=== PATIENT | male | born 1965 | race Caucasian/White ===

== ENCOUNTER → 2017-11-03 | Outpatient (CLI) | payer MEDICARE, MEDICAID ==
[2017-11-03 13:07] LABS: ABSOLUTE BASOPHILS # (AUTO) 0.1 10^3/uL (0.0-0.2); ABSOLUTE EOSINOPHILS # (AUTO) 0.5 10^3/uL (0.0-0.6); ABSOLUTE LYMPHOCYTES (AUTO) 2.9 10^3/uL (0.5-4.7); ABSOLUTE NEUT (AUTO) 8.2 10^3/uL (1.7-8.2); BASOPHILS % (AUTO) 0.5 % (0-2); EOSINOPHILS % (AUTO) 4.2 % (0-6); HEMATOCRIT 43.4 % (37.9-51.0); HEMOGLOBIN 15.2 g/dL (13.5-17.0); LYMPHOCYTES % (AUTO) 22.9 % (13-45); MEAN CORPUSCULAR HEMOGLOBIN 31.6 pg (27.0-33.4); MEAN CORPUSCULAR HGB CONC 34.9 g/dL (32.0-36.0); MEAN CORPUSCULAR VOLUME 91 fl (80-97); MONOCYTES % (AUTO) 7.8 % (3-13); PLATELET COUNT 342 10^3/uL (150-450); RED BLOOD COUNT 4.79 10^6/uL (4.35-5.55); RED CELL DISTRIBUTION WIDTH 12.9 % (11.5-14.0); SEGMENTED NEUTROPHILS % (AUTO) 64.6 % (42-78); TOTAL CELLS COUNTED % (AUTO) 100 %; WHITE BLOOD COUNT 12.7 10^3/uL (4.0-10.5)
[2017-11-04 13:37] LABS: ANTICHROMATIN AB <0.2 AI (0.0-0.9); CENTROMERE B AB <0.2 AI (0.0-0.9); JO-1 ANTIBODY (ANACOMP) <0.2 AI (0.0-0.9); RNP AB 0.3 AI (0.0-0.9); SCLERODERMA-70 ANTIBODIES <0.2 AI (0.0-0.9); SJOGREN'S ANTI-SS-B AB <0.2 AI (0.0-0.9); SJOGREN'S SS-A ANTIBODY <0.2 AI (0.0-0.9); SMITH AB ANA <0.2 AI (0.0-0.9)
[2017-11-06 07:33] LABS: DNA DOUBLE STRAND ANTIBODY ANA 1 IU/mL (0-9)
[2017-11-07 16:39] LABS: CYTOPLASMIC (C-ANCA) <1:20 titer (Neg:<1:20)
[2017-11-08 10:34] LABS: ATYPICAL PANCA <1:20 titer (Neg:<1:20); PERINUCLEAR (P-ANCA) <1:20 titer (Neg:<1:20)
== END ==
LOC: OD 12:03
PROVIDERS: ATTEND Nurse Practitioner
DX: M89.9 Disorder of bone, unspecified (principal); R94.2 Abnormal results of pulmonary function studies; M94.9 Disorder of cartilage, unspecified; R79.89 Other specified abnormal findings of blood chemistry; Z79.899 Other long term (current) drug therapy
CPT/HCPCS: 36415; 82306; 82607; 85025; 86021; 86225; 86235; 86430

== ENCOUNTER 2020-02-19 04:23 | Emergency (ER) | payer MEDICARE ==
[2020-02-19] MEDS ORDERED: NORMAL SALINE 1000 ML 1,000 ML IV ONE ×2 (05:35→07:13)
[2020-02-19] MEDS ORDERED: DEXAMETHASONE SOD PHOS INJ 10 MG/1 ML VIAL IV ONE (05:36)
[2020-02-19] MEDS ORDERED: DIAZEPAM 5 MG TABLET PO ONE (05:36)
--- NOTE | 2020-02-19 05:45 | ER Document Report ---
ED Medical Screen (RME) - General Chief Complaint: Back Pain Stated Complaint: BACK PAIN Primary Care Provider: KENNA SLATER NP [Primary Care Provider] - Follow up as needed Notes: 54-year-old male history of smoking, osteogenesis imperfecta, chronic back pain presents with worsened bilateral low back pain for 4 days. Patient ambulating, denies weakness or numbness, bowel or bladder symptoms, drug use, fever. Also has not been eating for the past 4 days because he is in too much pain to eat. TRAVEL OUTSIDE OF THE [place] IN LAST 30 DAYS: No - Related Data Allergies/Adverse Reactions: No Known Allergies Allergy (Unverified 01/17/14 16:38) Past Medical History - General Information source: Patient, Relative - Social History Chew tobacco use (# tins/day): No Frequency of alcohol use: None Drug Abuse: None - Past Medical History Cardiac Medical History: Reports: Hx Hypercholesterolemia - DX IN 1999, Hx Hypertension - HAS BEEN OK FOR AFEW YEARS Endocrine Medical History: Reports: Hx Diabetes Mellitus Type 1 - DX 8 YEARS AGO, Hx Diabetes Mellitus Type 2 GI Medical History: Reports: Hx Gastroesophageal Reflux Disease - DX 4 YEARS AGO, Hx Hiatal Hernia - DX 4 YEARS AGO Past Surgical History: Denies: Hx Adenoidectomy Review of Systems - Review of Systems Notes: No fever, no weight loss Physical Exam - Vital signs Vitals: Temp Pulse Resp BP Pulse Ox 98.0 F 113 H 17 150/70 H 97 02/19/20 04:34 02/19/20 04:34 02/19/20 04:34 02/19/20 04:34 02/19/20 04:34 - Notes Notes: Awake and alert in no acute distress, diffuse paraspinal and lateral tenderness over lower back with normal inspection, bilateral lower extremity edema Course - Re-evaluation Re-evalutation: 02/19/20 05:44 I have greeted and performed a rapid initial assessment of this patient. A comprehensive ED assessment and evaluation of the patient, analysis of test results and completion of medical decision making process will be conducted by additional ED providers. - Vital Signs Vital signs: Temp Pulse Resp BP Pulse Ox 98.0 F 113 H 17 150/70 H 97 02/19/20 04:34 02/19/20 04:34 02/19/20 04:34 02/19/20 04:34 02/19/20 04:34 Doctor's Discharge - Discharge Referrals: KENNA SLATER NP [Primary Care Provider] - Follow up as needed
--- NOTE | 2020-02-19 06:19 | ER Document Report ---
ED General Pain - General Chief Complaint: Back Pain Stated Complaint: BACK PAIN Time Seen by Provider: 02/19/20 06:06 Primary Care Provider: KENNA SLATER NP [Primary Care Provider] - Follow up as needed Notes: HPI: 54-year-old male presents today stating around 6 weeks of some worsening back pain. Patient states he has a long history of chronic back pain and sees a painter set as well as a back reconstructive surgery in 2000. Patient has a past medical history including osteogenesis imperfecta as well as diabetes. Patient denies any recent falls, incontinence, fevers, vomiting, or dysuria. Patient states that the pain is mostly to the left low back. He denies any midline pain at this time. He denies any foot drop or other review of systems. Patient has had some slight swelling to both legs that he believes is secondary to hanging his legs off the end of the bed for extended periods of time as a position of comfort for his back. He denies any chest pain or shortness of breath. Patient has no history of kidney stones. ROS: See HPI All other review of systems reviewed and otherwise negative Reviewed vital signs and nursing note as charted by RN. PHYSICAL EXAM: CONSTITUTIONAL: Alert and oriented and responds appropriately to questions. Well-appearing; well-nourished HEAD: Normocephalic; atraumatic EYES: PERRL; Conjunctivae clear, sclerae non-icteric ENT: Normal nose; no rhinorrhea; moist mucous membranes; pharynx without lesions noted NECK: Supple without meningismus; non-tender; no cervical lymphadenopathy, no masses CARD: Regular rate and rhythm; no murmurs; symmetric distal pulses RESP: Normal chest excursion without splinting or tachypnea; breath sounds clear and equal bilaterally ABD/GI: Normal bowel sounds; non-distended; soft, non-tender to deep palpation of all 4 quadrants of the abdomen BACK: The back appears normal and is non-tender to palpation along the midline spine. Patient does have some left-sided paraspinal muscular tenderness without swelling or erythema noted. No CVA tenderness EXT: Normal ROM in all joints; non-tender to palpation; 1+ edema to bilateral feet SKIN: No acute lesions noted NEURO: CN 2-12 intact; 5/5 bilateral upper and lower extremity strength with sensation intact to light touch with no apparent foot drop noted with 2+ patellar reflexes PSYCH: The patient's mood and manner are appropriate. Grooming and personal hygiene are appropriate. TRAVEL OUTSIDE OF THE [place] IN LAST 30 DAYS: No - Related Data Allergies/Adverse Reactions: pregabalin [From Lyrica] Adverse Reaction (Severe, Verified 02/19/20 05:57) Hives tizanidine [From Zanaflex] Adverse Reaction (Unknown, Verified 02/19/20 06:20) Past Medical History - General Information source: Patient, Relative - Social History Smoking Status: Never Smoker Chew tobacco use (# tins/day): No Frequency of alcohol use: None Drug Abuse: None Family History: Reviewed & Not Pertinent Patient has homicidal ideation: No - Past Medical History Cardiac Medical History: Reports: Hx Hypercholesterolemia - DX IN 1999, Hx Hypertension - HAS BEEN OK FOR AFEW YEARS Endocrine Medical History: Reports: Hx Diabetes Mellitus Type 1 - DX 8 YEARS AGO, Hx Diabetes Mellitus Type 2 GI Medical History: Reports: Hx Gastroesophageal Reflux Disease - DX 4 YEARS AGO, Hx Hiatal Hernia - DX 4 YEARS AGO Past Surgical History: Reports: Hx Orthopedic Surgery - x4. Denies: Hx Adenoidectomy Physical Exam - Vital signs Vitals: Temp Pulse Resp BP Pulse Ox 98.0 F 113 H 17 150/70 H 97 02/19/20 04:34 02/19/20 04:34 02/19/20 04:34 02/19/20 04:34 02/19/20 04:34 Course - Re-evaluation Re-evalutation: 02/19/20 06:18 Given the above history and physical with the patient's prolonged symptoms, with neurologic exam as above, I do believe discitis, epidural abscess, osteomyelitis, spinal fracture, or spinal cord compression/cauda equina to be extremely unlikely. We will obtain basic labs as well as a magnesium and phosphorus level as the patient has been told that these levels have been low in recent visits. Patient is a pain management patient. Despite being a diabetic, steroids were ordered in triage. Given the slight edema to bilateral lower extremities, will obtain a BNP and an EKG. 02/19/20 07:12 EKG shows a heart rate of 94, normal sinus rhythm, no obvious ST elevation or depression. No change in examination. Labs as recorded. Slightly elevated white blood cell count after Decadron. Phosphorus level is actually elevated as is his calcium. He has had elevated calcium levels in the past. Given his sodium slightly low with an elevated calcium I will provide a liter of fluid. 02/19/20 08:19 No change in exam. Signs are stable. Patient will be discharged home with strict return precautions and follow-up with primary care physician follow-up with his painter set and orthopaedic specialist. HR is now 85 - Vital Signs Vital signs: Temp Pulse Resp BP Pulse Ox 98.0 F 113 H 17 150/70 H 97 02/19/20 04:34 02/19/20 04:34 02/19/20 04:34 02/19/20 04:34 02/19/20 04:34 - Laboratory Results Result Diagrams: 02/19/20 06:10 02/19/20 06:10 Laboratory Results Interpreted: 02/19/20 02/19/20 02/19/20 06:10 06:10 06:10 WBC 17.9 H Lymph % (Auto) 12.0 L Absolute Neuts (auto) 13.7 H Absolute Monos (auto) 1.8 H Sodium 129.1 L Chloride 97 L Glucose 164 H Calcium 10.7 H Phosphorus 5.6 H Creatine Kinase 402 H CK-MB (CK-2) 6.95 H NT-Pro-B Natriuret Pep 02/19/20 06:10 WBC Lymph % (Auto) Absolute Neuts (auto) Absolute Monos (auto) Sodium Chloride Glucose Calcium Phosphorus Creatine Kinase CK-MB (CK-2) NT-Pro-B Natriuret Pep 175 H Critical Laboratory Results Reviewed: No Critical Results - Radiology Results Critical Radiology Results Reviewed: No Critical Results Discharge - Discharge Clinical Impression: Low back pain Qualifiers: Chronicity: chronic Back pain laterality: left Sciatica presence: without sciatica Qualified Code(s): M54.5 - Low back pain; G89.29 - Other chronic pain Condition: Fair Disposition: HOME, SELF-CARE Additional Instructions: Come back immediately for any increased pain, change in location or quality of pain, fevers or vomiting, weakness of your legs, incontinence, or any other acute problems. Please make sure that you follow-up with your primary care physician, painter set, and your security delivery specialist as discussed. Referrals: KENNA SLATER NP [Primary Care Provider] - Follow up as needed
[2020-02-19 06:31] LABS: ABSOLUTE BASOPHILS # (AUTO) 0.1 10^3/uL (0.0-0.2); ABSOLUTE EOSINOPHILS # (AUTO) 0.2 10^3/uL (0.0-0.6); ABSOLUTE LYMPHOCYTES (AUTO) 2.1 10^3/uL (0.5-4.7); ABSOLUTE MONOCYTES (AUTO) 1.8 10^3/uL (0.1-1.4); ABSOLUTE NEUT (AUTO) 13.7 10^3/uL (1.7-8.2); BASOPHILS % (AUTO) 0.4 % (0-2); EOSINOPHILS % (AUTO) 1.3 % (0-6); HEMATOCRIT 45.6 % (37.9-51.0); HEMOGLOBIN 15.8 g/dL (13.5-17.0); MEAN CORPUSCULAR HEMOGLOBIN 31.4 pg (27.0-33.4); MEAN CORPUSCULAR HGB CONC 34.6 g/dL (32.0-36.0); MEAN CORPUSCULAR VOLUME 91 fl (80-97); MONOCYTES % (AUTO) 9.9 % (3-13); PLATELET COUNT 398 10^3/uL (150-450); RED BLOOD COUNT 5.03 10^6/uL (4.35-5.55); RED CELL DISTRIBUTION WIDTH 13.3 % (11.5-14.0); SEGMENTED NEUTROPHILS % (AUTO) 76.4 % (42-78); TOTAL CELLS COUNTED % (AUTO) 100 %; WHITE BLOOD COUNT 17.9 10^3/uL (4.0-10.5)
[2020-02-19 06:48] LABS: ALBUMIN 4.2 g/dL (3.5-5.0); ALKALINE PHOSPHATASE 102 U/L (38-126); ANION GAP 9 (5-19); ASPARTATE AMINO TRANSFERASE 37 U/L (17-59); BILIRUBIN,DIRECT 0.1 mg/dL (0.0-0.4); BILIRUBIN,TOTAL 0.5 mg/dL (0.2-1.3); BLOOD UREA NITROGEN 20 mg/dL (7-20); CALCIUM 10.7 mg/dL (8.4-10.2); CARBON DIOXIDE 23 mmol/L (22-30); CHLORIDE 97 mmol/L (98-107); CREATINE KINASE 402 U/L (55-170); GLUCOSE 164 mg/dL (75-110); PHOSPHORUS 5.6 mg/dL (2.5-4.5); POTASSIUM 4.9 mmol/L (3.6-5.0); TOTAL PROTEIN 7.3 g/dL (6.3-8.2)
[2020-02-19 06:59] LABS: CREATINE KINASE MB 6.95 ng/mL (<4.55)
[2020-02-19 07:01] LABS: TROPONIN I < 0.012 ng/mL
[2020-02-19] MEDS ORDERED: MORPHINE SULFATE 10 MG/ML INJ IV ONE (07:31)
[2020-02-19 08:41] LABS: APPEARANCE,URINE CLEAR; BILIRUBIN,URINE NEGATIVE (NEGATIVE); COLOR,URINE STRAW; GLUCOSE, URINE 50 mg/dL (NEGATIVE); KETONES,URINE TRACE mg/dL (NEGATIVE); LEUKOCYTE ESTERASE,URINE NEGATIVE (NEGATIVE); NITRITE,URINE NEGATIVE (NEGATIVE); PROTEIN,URINE NEGATIVE (NEGATIVE); URINE SPECIFIC GRAVITY 1.006; UROBILINOGEN,URINE NEGATIVE mg/dL (<2.0)
[2020-02-19 09:05] VITALS: BP 129/56
--- NOTE | 2020-02-19 10:45 | EKG REPORT ---
SEVERITY:- ABNORMAL ECG - SINUS RHYTHM PROBABLE INFERIOR INFARCT, OLD : Confirmed by: Adelina Díaz MD 19-Feb-2020 10:44:39
== END 2020-02-19 09:04 | disposition home or self-care (01) ==
LOC: ER 04:23
DX: G89.29 Other chronic pain (principal); M54.5 Low back pain; E11.9 Type 2 diabetes mellitus without complications
CPT/HCPCS: 93005; 99284; 96361; 96374; 96375; 36415; 82553; 82550; 83735; 84100; 85025; 80053; 81001; 84484; 83880; 93010; A9270; J2270; J7030; J1100